=== PATIENT | male | born 1960 | race Caucasian/White ===

== ENCOUNTER 2024-04-22 11:10 | Emergency (ER) | payer BC ==
[2024-04-22] MEDS ORDERED: Bacitracin 1 PK ONE (11:29)
[2024-04-22] MEDS ORDERED: Boostrix 0.5 ML (Tdap) VIAL (>/=7 yrs of age) ONE (11:29)
== END 2024-04-22 11:46 | disposition home or self-care (01) ==
LOC: NAV ERS 11:10
DX: S01.411A Laceration without foreign body of right cheek and temporomandibular area, initial encounter (principal); I10 Essential (primary) hypertension; E78.00 Pure hypercholesterolemia, unspecified; Y28.8XXA Contact with other sharp object, undetermined intent, initial encounter; Y93.02 Activity, running; Z23 Encounter for immunization; Z79.82 Long term (current) use of aspirin; Z79.899 Other long term (current) drug therapy
CPT/HCPCS: 90471; 90715